=== PATIENT | male | born 1975 | race Caucasian/White ===

== ENCOUNTER → 2018-01-06 | Outpatient (CLI) | payer OTHER ==
--- NOTE | 2018-01-06 10:50 | PCVCIMAG ---
APPROVED REPORT Study performed: 01/06/2018 08:32:50 EXAM: Comprehensive 2D, Doppler, and color-flow Echocardiogram Patient Location: Echo lab Status: routine BSA: 2.54 HR: 55494 bpmBP: 160/110 mmHg Rhythm: NSR Other Information Study Quality: AdequateTechnically Limited Risk Factors: Cardiac Risk Factors: HTN, Hyperlipidemia Indications Hypertension/HDD 2D Dimensions IVSd: 15.24 (7-11mm)LVOT Diam: 24.07 (18-24mm) LVDd: 42.30 mm LVPWs: 22.87 mm PWd: 16.66 (7-11mm)Ascending Ao: 41.06 (22-36mm) LVDs: 29.59 (25-40mm) Left Atrium: 35.56 (27-40mm) Aortic Root: 33.26 mm LV Single Plane 4CH: 47.43 % LV Single Plane 2CH: 52.96 % Biplane EF: 46.8 % Volumes Left Atrial Volume (Systole) Single Plane 4CH: 44.67 mLSingle Plane 2CH: 55.43 mL LA ESV Index: 21.00 mL/m2 Aortic Valve AoV Peak Elie.: 1.09 m/s AO Peak Gr.: 4.79 mmHgLVOT Max P.27 mmHg LVOT Max V: 0.90 m/s BRYANT Vmax: 3.76 cm2 Mitral Valve E/A Ratio: 1.0 MV Decel. Time: 164.69 ms MV E Max Elie.: 0.66 m/s MV A Elie.: 0.68 m/s IVRT: 131.49 ms TDI E/Lateral E': 7.33E/Medial E': 8.25 Medial E' Elie.: 0.08 m/s Lateral E' Elie.: 0.09 m/s Pulmonary Valve PV Peak Elie.: 9.00 m/sPV Peak Gr.: 1.62 mmHg Pulmonary Vein P Vein S: 0.34 m/sP Vein A: 0.28 m/s P Vein D: 0.47 m/sP Vein A Dur.: 107.3 msec P Vein S/D Ratio: 0.72 Left Ventricle The left ventricle is normal size. There is normal LV segmental wall motion. Mild to moderate concentric left ventricular hypertrophy. Left ventricular systolic function is lower end of normal. LVEF is 55%. The left ventricular diastolic function is normal. Right Ventricle The right ventricle is normal size. The right ventricular systolic function is normal. Atria The left atrium size is normal. The right atrium size is normal. Aortic Valve The aortic valve is normal in structure. No aortic regurgitation is present. There is no aortic valvular stenosis. Mitral Valve The mitral valve is normal in structure. There is no mitral valve regurgitation noted. No evidence of mitral valve stenosis. Tricuspid Valve The tricuspid valve is normal in structure. There is no tricuspid valve regurgitation noted. Pulmonic Valve The pulmonary valve is normal in structure. There is no pulmonic valvular regurgitation. Great Vessels The aortic root is normal in size. The ascending aorta is borderline dilated. IVC is normal in size and collapses >50% with inspiration. Pericardium There is no pericardial effusion. <Conclusion> The left ventricle is normal size. Left ventricular systolic function is lower end of normal. LVEF is 55%. The aortic valve is normal in structure. The mitral valve is normal in structure. The tricuspid valve is normal in structure. The pulmonary valve is normal in structure. There is no pericardial effusion.
--- NOTE | 2018-01-06 11:14 | PCVCIMAG ---
EXAM: BILATERAL RENAL ULTRASOUND AND BILATERAL RENAL DUPLEX INDICATION: Hypertension FINDINGS: Right kidney: Length measures 11.3 cm. No hydronephrosis or extensive renal scarring. Right renal duplex: Adequate technical quality. No sonographic evidence of renal artery stenosis. The aortic to renal artery ratio is 0.9. The renal vein is patent. Left kidney: Length measures 11.2 cm. No hydronephrosis or extensive renal scarring. Left renal duplex: Adequate technical quality. No sonographic evidence of renal artery stenosis. The aortic to renal artery ratio is 1.0. The renal vein is patent. Bladder: No obvious abnormalities. IMPRESSION: No significant renal artery stenosis. No hydronephrosis bilaterally. LOC:[id number]
== END | disposition home or self-care (01) ==
LOC: PCVCIMAG 12:02
PROVIDERS: ATTEND Internal Medicine
DX: I10 Essential (primary) hypertension (principal)
CPT/HCPCS: 76770; 93306; 93975